=== PATIENT | female | born 1960 | race African-American/Black ===

== ENCOUNTER → 2017-05-27 | Outpatient (CLI) | payer BC ==
[~2017-05-27] MED LIST: NO HOME MEDICATIONS
== END ==
LOC: MC.RAD 16:16
DX: Z12.31 Encounter for screening mammogram for malignant neoplasm of breast (principal)

== ENCOUNTER → 2019-03-02 | Outpatient (CLI) | payer BC | LOC: MC.RAD 16:00 | DX: Z12.31 Encounter for screening mammogram for malignant neoplasm of breast (principal); N63.10 Unspecified lump in the right breast, unspecified quadrant ==

== ENCOUNTER → 2019-03-08 | Outpatient (CLI) | payer BC | LOC: MC.RAD 12:29 | DX: N60.01 Solitary cyst of right breast (principal) ==

== ENCOUNTER 2020-03-16 10:32 | Day surgery (SDC) | payer BC ==
[~2020-03-16] VITALS: Ht 162.6 cm; Wt 60.5 kg
[2020-03-16 10:51] VITALS: BP 118/81; PULSE 81; TEMP 98.8
[2020-03-16] MEDS ORDERED: NORVASC 10MG10 MG PO (11:05)
[2020-03-16 12:35] VITALS: BP 107/77; PULSE 66; TEMP 97.8
--- NOTE | 2020-03-16 12:35 | NUR ---
Patient brought back to [facility] [address] via cart. Alert and oriented. Ambulated to chair without difficulty. Placed on monitors, vital signs stable. Patient denies pain or nausea. States she would like muffin and juice. Friend notified to picking belt operator soon. Warm blanket provided, call alcantar within reach. Will continue to monitor.
[2020-03-16 12:50] VITALS: BP 122/75; PULSE 66
--- NOTE | 2020-03-16 12:50 | NUR ---
Patient states she is feeling well. Tolerating food and drink without difficulty. Vital signs stable. Will continue to monitor.
[2020-03-16 13:05] VITALS: BP 139/55; PULSE 64
--- NOTE | 2020-03-16 13:05 | NUR ---
Patient states she is ready to go home at this time. IV removed, intact. Discharge instructions reviewed with patient. All questions answered. Patient to get dressed at this time.
--- NOTE | 2020-03-16 13:15 | NUR ---
Patient brought down to lobby via wheel chair. All posessions in hand. Friend at front door to drive patient home.
== END 2020-03-16 13:15 | disposition home or self-care (01) ==
LOC: SDCO 10:32
DX: Z12.11 Encounter for screening for malignant neoplasm of colon (principal); G47.33 Obstructive sleep apnea (adult) (pediatric); J45.909 Unspecified asthma, uncomplicated; E78.5 Hyperlipidemia, unspecified; I10 Essential (primary) hypertension; Z86.010 Personal history of colon polyps
CPT/HCPCS: J2704; J7120

== ENCOUNTER → 2021-11-08 | Outpatient (CLI) | payer BC ==
[~2021-11-08] MED LIST changes: +NORVASC 10MG10 MG PO
== END ==
LOC: MC.RAD 16:11
DX: Z12.31 Encounter for screening mammogram for malignant neoplasm of breast (principal)